=== PATIENT | female | born 1955 | race Two or more races ===

== ENCOUNTER 2018-10-10 07:46 | Inpatient (IN) ==
[~2018-10-10] VITALS: Ht 167.6 cm; Wt 56.7 kg
--- NOTE | 2018-10-10 08:11 | NUR ---
patient BIB came to the er c/o abd pain started last night. Ambulatory with steady gait. On room air, breathing evenly and unlabored. Connected to the monitor and pulse ox. kept comfortable, will continue to monitor accordingly.
--- NOTE | 2018-10-10 08:13 | NUR ---
blood drawned and collected urine and sent to lab.
[2018-10-10] MEDS ORDERED: ONDANSETRON HCL/PF 4 MG/2 ML VIAL ONE (08:18)
[2018-10-10] MEDS ORDERED: MORPHINE SULFATE INJ 2 MG/ML DISP.SYRIN ONE ×2 (08:23→08:37)
[2018-10-10 08:27] LABS: BASOPHILS % (AUTO) 0.2 % (0.0-2.0); EOSINOPHILS % (AUTO) 0.2 % (0.0-6.0); HEMATOCRIT 42 % (33-45); HEMOGLOBIN 14.3 g/dL (11.5-14.8); LYMPHOCYTES # (AUTO) 1.2 /CMM (0.8-4.8); LYMPHOCYTES % (AUTO) 7.1 % (20.0-44.0); MEAN CORPUSCULAR HGB CONC 34 g/dl (31.0-36.0); MEAN CORPUSCULAR VOLUME 98 fL (82-100); MONOCYTES # (AUTO) 0.7 /CMM (0.1-1.30); MONOCYTES % (AUTO) 4.5 % (2.0-12.0); NEUTROPHILS # (AUTO) 14.4 /CMM (1.8-8.9); PLATELET COUNT (AUTO) 194 /CMM (150-450); RED BLOOD CELL COUNT(AUTO) 4.26 MIL/uL (4.0-5.2); WHITE BLOOD COUNT (AUTO) 16.4 K/uL (4.3-11.0)
[2018-10-10] MEDS ORDERED: ONDANSETRON HCL/PF 4 MG/2 ML VIAL IVP ONE (08:30)
[2018-10-10] MEDS ORDERED: MORPHINE SULFATE INJ 2 MG/ML DISP.SYRIN IV ONE ×3 (08:30→12:00)
[2018-10-10] MEDS ORDERED: IV NS 0.9% 1,000 ML BAG IV ONE (08:30)
[2018-10-10 08:31] LABS: APPEARANCE,URINE Clear (CLEAR); BILIRUBIN,URINE SMALL (NEGATIVE); BLOOD, URINE Trace-intact Ery/uL (NEGATIVE); COLOR,URINE Yellow (YELLOW); KETONES,URINE Negative (NEGATIVE); LEUKOCYTE ESTERASE ,URINE Negative (NEGATIVE); NITRITE, URINE Negative (NEGATIVE); PH,URINE 8.5 (5.0-8.0); PROTEIN,URINE 100 mg/dl (NEGATIVE); UGLUCOSE Negative (NEGATIVE)
[2018-10-10 08:32] LABS: CALCIUM, SERUM 8.9 mg/dL (8.5-10.1); POTASSIUM 3.4 mmol/L (3.5-5.1)
[2018-10-10 08:37] LABS: ALBUMIN 3.7 g/dL (3.4-5.0); BILIRUBIN,DIRECT 0.1 mg/dL (0.0-0.2); BILIRUBIN,TOTAL 0.9 mg/dL (0.2-1.0)
[2018-10-10 08:43] LABS: BACTERIA,URINE None seen /HPF (None Seen); RBC,URINE 0-2 /HPF (0-2); SQUAMOUS EPITHELIAL CELL,UR Few /HPF (None Seen); WBC,URINE 0-2 /HPF (0-3)
[2018-10-10] MEDS ORDERED: CT SWABBABLE VALVE TRANS SET 1 EA INFUS.SET MC ONE (09:24)
[2018-10-10] MEDS ORDERED: IV NS 0.9% 250 ML IV ONE (09:24)
[2018-10-10] MEDS ORDERED: IOHEXOL-300 100 ML VIAL IV ONE (09:24)
[2018-10-10] MEDS ORDERED: PIPERACILLIN /TAZOBACTAM 3.375 G in IV D5W 50 ML IV ONE (10:00)
--- NOTE | 2018-10-10 11:31 | NUR ---
DR MA PAGED,LEFT A MESSAGE
--- NOTE | 2018-10-10 11:43 | NUR ---
CALL BACK FROM DR MA
[2018-10-10] MEDS ORDERED: MORPHINE SULFATE INJ 4 MG/ML DISP.SYRIN ONE (12:03)
--- NOTE | 2018-10-10 12:17 | NUR ---
ROOM 316-1
[2018-10-10] MEDS ORDERED: FENTANYL PF 100MCG/2ML AMPUL ONE (12:20)
[2018-10-10] MEDS ORDERED: MIDAZOLAM HCL 2 MG/2ML VIAL ONE (12:20)
[2018-10-10] MEDS ORDERED: ROCURONIUM BROMIDE 50 MG/5 ML ONE (12:21)
[2018-10-10] MEDS ORDERED: LIDOCAINE HCL/PF 1% 30 ML SDV ONE (12:22)
[2018-10-10] MEDS ORDERED: ANESTHESIA TRAY IN PYXIS 1 EA TRAY MC ONE (12:22)
[2018-10-10] MEDS ORDERED: BUPIVACAINE MPF 0.5% W/EPI INJ 30 ML VIAL ONE (12:22)
--- NOTE | 2018-10-10 12:24 | NUR ---
REPORT GIVEN TO LORI YOUNG FOR STANISLAW
[2018-10-10] MEDS ORDERED: ALBUTEROL FS 2.5 MG/3 ML VIAL.NEB ONE (12:47)
[2018-10-10] MEDS ORDERED: IPRATROPIUM NEB FS 0.5 MG/2.5 ML AMPUL.NEB ONE (12:47)
--- NOTE | 2018-10-10 12:47 | NUR ---
OR STAFF HERE TO TAKE HER DIRECTLY TO OPERATING ROOM
[2018-10-10] MEDS ORDERED: MAGNESIUM HYDROXIDE 30 ML UDC PO PRN (13:30)
[2018-10-10] MEDS ORDERED: ACETAMINOPHEN 325 MG TABLET PO PRN (13:30)
[2018-10-10] MEDS ORDERED: Z GUARD REMEDY 2 OZ OINT TP PRN (13:30)
[2018-10-10] MEDS ORDERED: ZOLPIDEM TARTRATE 5 MG TABLET PO PRN (13:30)
[2018-10-10] MEDS ORDERED: ONDANSETRON HCL/PF 4 MG/2 ML VIAL IVP PRN ×2 (13:30→16:30)
[2018-10-10] MEDS ORDERED: MAG HYDROX/AL HYDROX/SIMETH 30 ML UDC PO PRN (13:30)
[2018-10-10] MEDS ORDERED: BACITRACIN/POLYMYXIN B 15 GM TUBE TP ONE (14:18)
[2018-10-10] MEDS ORDERED: BACITRACIN ZINC OINT PACKET 1 EA PACKET TP ONE (14:35)
[2018-10-10 15:30] VITALS: BP 102/52
--- NOTE | 2018-10-10 15:30 | NUR ---
MS RN NOTES ADMITTED FROM ER WENT TO OR DIRECTLY, REPORT GIVEN BY LUIS YOUNG (ER) . PATIENT CAME FROM OR, REPORT GIVEN BY CHARLENE YOUNG. ALERT ORIENTED X 4, WITH STABLE VITAL SIGNS. NO ACUTE DISTRESS NOTED, BREATHING UNLABORED. IV ACCESS PATENT AND INTACT. DRESSING ON ABDOMEN CLEAN, DRY AND INTACT. DENIED PAIN AT THIS TIME. NEEDS ATTENDED AND ANTICIPATED. SAFETY MEASURES IN PLACE. CALL LIGHT WITHIN REACH. WILL CONTINUE TO MONITOR ACCORDINGLY.
[2018-10-10 16:00] VITALS: BP 94/61
[2018-10-10] MEDS ORDERED: IBUPROFEN 400 MG TABLET PO PRN (16:30)
[2018-10-10] MEDS ORDERED: HYDROMORPHONE 1 MG/1 ML DISP.SYRIN IV PRN (16:30)
[2018-10-10] MEDS: IV LR 1000 ML 1,000 ML IV PRN (17:12)
[2018-10-10] MEDS: GABAPENTIN 300 MG CAPSULE PO SCH (17:12)
[2018-10-10] MEDS: PIPERACILLIN /TAZOBACTAM 3.375 G in IV D5W 50 ML IV SCH (17:13)
--- NOTE | 2018-10-10 18:16 | NUR ---
MS RN NOTES RECEIVED NEW ORDERS FROM DR MINA PIMENTEL FOR Mefoxin (Cefoxitin 1 G) 1G in IV D5w 50 ml (IV D5w 50 ML) 50 ml @ 100 MLS/HR for 30 MIN IV Q8HR TO START TONIGHT AT 2100. NOTED AND CARRIED OUT.
--- NOTE | 2018-10-10 18:30 | NUR ---
MS RN NOTES RECEIVED NEW ORDERS FROM DR MINA PIMENTEL TO DISCONTINUE Mefoxin (Cefoxitin 1 G) 1G in IV D5w 50 ml (IV D5w 50 ML) 50 ml @ 100 MLS/HR for 30 MIN IV Q8HR . NOTED AND CARRIED OUT.
--- NOTE | 2018-10-10 18:53 | NUR ---
MS RN NOTES PATIENT IN BED ALERT ORIENTED X 4, WITH STABLE VITAL SIGNS .NO ACUTE DISTRESS NOTED, BREATHING UNLABORED, NO SOB NOTED. IV ACCESS PATENT AND INTACT, NO REDNESS NO SWELLING NOTED. DUE MEDICATIONS GIVEN, NO ASE NOTED. ABDOMINAL DRESSING CLEAN DRY AND INTACT. NEEDS ATTENDED AND ANTICIPATED. SAFETY MEASURES IN PLACE. CALL LIGHT WITHIN REACH. WILL ENDORSE TO NIGHT NURSE FOR CONTINUITY OF CARE.
--- NOTE | 2018-10-10 19:30 | NUR ---
RN MS OPENING NOTES RECEIVED PATIENT IN BED AWAKE, ALERT AND ORIENTED X4, VERBALLY RESPONSIVE, ABLE TO MAKE NEEDS KNOWN. BREATHING EVEN AND UNLABORED. NO SOB NOTED. ON 2LPM OXYGEN VIA NC. CURRENTLY WITH NO COMPLAINTS OF PAIN OR DISCOMFORT. NO FACIAL GRIMACING. IV ON LEFT AC INTACT AND PATENT WITH IVF INFUSING. SKIN DRY AND WARM TO TOUCH. AFEBRILE. DRESSING ON THE ABDOMEN DRY AND INTACT. ALL OTHER NEEDS MET. SAFETY MEASURES IN PLACE. CALL LIGHT WITHIN REACH. WILL CONTINUE TO MONITOR.
[2018-10-10 20:00] VITALS: BP 107/63
[2018-10-10] MEDS ORDERED: CEFOXITIN 1 G in IV D5W 50 ML IV SCH (21:00)
[2018-10-10] MEDS: HYDROCODONE/APAP 5/325MG 1 EACH TABLET PO PRN (21:38)
[2018-10-11] MEDS: PIPERACILLIN /TAZOBACTAM 3.375 G in IV D5W 50 ML IV SCH ×2 (00:36→05:49)
[2018-10-11] MEDS: GABAPENTIN 300 MG CAPSULE PO SCH ×4 (00:37→23:53)
[2018-10-11] MEDS: IV LR 1000 ML 1,000 ML IV PRN ×2 (03:37→18:56)
--- NOTE | 2018-10-11 06:28 | NUR ---
RN MS CLOSING NOTES PATIENT RESTING IN BED. NO ACUTE CHANGES THROUGHOUT SHIFT. ALL DUE MEDS GIVEN AND TOLERATED WELL. BREATHING EVEN AND UNLABORED. NO SOB NOTED. CURRENTLY WITH NO COMPLAINTS OF PAIN OR DISCOMFORT. NO FACIAL GRIMACING. IV ON LEFT AC INTACT AND PATENT WITH IVF INFUSING. DRESSING ON THE ABDOMEN DRY AND INTACT. NO SIGNS OF DRAINAGE OR REDNESS IN SURROUNDING AREA. ALL OTHER NEEDS MET. SAFETY MEASURES IN PLACE. CALL LIGHT WITHIN REACH. WILL ENDORSE TO ONCOMING NURSE FOR STANISLAW.
[2018-10-11 06:33] LABS: BASOPHILS % (AUTO) 0.1 % (0.0-2.0); EOSINOPHILS % (AUTO) 0.1 % (0.0-6.0); HEMATOCRIT 34 % (33-45); HEMOGLOBIN 11.8 g/dL (11.5-14.8); LYMPHOCYTES # (AUTO) 0.8 /CMM (0.8-4.8); LYMPHOCYTES % (AUTO) 7.1 % (20.0-44.0); MEAN CORPUSCULAR HGB CONC 34 g/dl (31.0-36.0); MEAN CORPUSCULAR VOLUME 97 fL (82-100); MONOCYTES # (AUTO) 0.7 /CMM (0.1-1.30); MONOCYTES % (AUTO) 6.1 % (2.0-12.0); NEUTROPHILS # (AUTO) 9.7 /CMM (1.8-8.9); NEUTROPHILS % (AUTO) 86.6 % (43.0-81.0); PLATELET COUNT (AUTO) 151 /CMM (150-450); RED BLOOD CELL COUNT(AUTO) 3.55 MIL/uL (4.0-5.2); WHITE BLOOD COUNT (AUTO) 11.2 K/uL (4.3-11.0)
[2018-10-11 06:49] LABS: CALCIUM, SERUM 8.3 mg/dL (8.5-10.1); CREATININE 0.9 mg/dL (0.6-1.3); MAGNESIUM 1.9 mg/dL (1.8-2.4); PHOSPHORUS 2.8 mg/dL (2.5-4.9); POTASSIUM 4.1 mmol/L (3.5-5.1)
[2018-10-11 08:00] VITALS: BP 110/64
[2018-10-11 08:37] VITALS: BP 110/64
[2018-10-11] MEDS: HYDROCODONE/APAP 5/325MG 1 EACH TABLET PO PRN ×2 (11:42→23:09)
--- NOTE | 2018-10-11 12:00 | NUR ---
patient tolerated full liquid well. No N/V , no pain
[2018-10-11] MEDS: PIPERACILLIN /TAZOBACTAM 3.375 G in IV D5W 100 ML IV SCH ×2 (13:25→21:00)
[2018-10-11 16:00] VITALS: BP 107/64
--- NOTE | 2018-10-11 18:51 | NUR ---
PATIENT A/OX4 , IN BED . BREATHING UNLABORED AND EVEN ON ROOM AIR. PATIENT STARTED ON REGULAR DIET AND TOLERATED WELL. NO COMPLAINS OF PAIN AT THIS TIME. ALL NEEDS ATTENDED TO.WILL ENDORSE TO NEXT SHIFT
--- NOTE | 2018-10-11 19:06 | NUR ---
Patient lives locally with family. She is ambulatory and independent with adl's. Denies needs of DME, no hx of homehealth care. Has good family support. She plan to return home once discharge. Addendum: 10/11/18 at 1906 by NAHEED SILVA RN Amended: Links added.
--- NOTE | 2018-10-11 19:13 | NUR ---
MS HANNAH OPENING NOTES: RECEIVED PT ON ROOM AIR AND IS TOLERATING WELL. NO SOB NOTED. NO S/S OF DISTRESS. PT JUST SAYING WHEN SHE MOVES, SHE GETS PAIN. IV BEING INFUSED WITH IV LR AT 100ML/HR. BED KEPT IN LOW, LOCKED POSITION, AND SIDE RAILS X 2UP. WILL CONTINUE TO MONITOR PT. Addendum: 10/11/18 at 2031 by BRYANT BECERRIL RN ABDOMEN DRESSING NOTED CLEAN AND DRY WITH TEGADERM.
[2018-10-11 20:00] VITALS: BP 113/63
--- NOTE | 2018-10-11 23:10 | NUR ---
MS RN NOTES: PT COMPLAINING OF 5/10 ABDOMEN ACHY PAIN. PT WAS ADMINISTERED NORCO 5 PO. WILL CONTINUE TO MONITOR.
[2018-10-12] MEDS: PIPERACILLIN /TAZOBACTAM 3.375 G in IV D5W 100 ML IV SCH (05:06)
--- NOTE | 2018-10-12 06:30 | NUR ---
MS RN CLOSING NOTES: ALL NEEDS WERE ATTENDED AND ANTICIPATED FOR. NO SOB NOTED. NO S/S OF DISTRESS. PT ASLEEP AT THIS TIME RESTING COMFORTABLY. DRESSING ON MIDLINE ABDOMEN REMAINS CLEAN AND DRY. PT HAS IV ON L AC #20G AND IS BEING INFUSED WITH ZOSYN AT 25ML/HR. BED KEPT IN LOW, LOCKED POSITION, AND SIDE RAILS X 2UP. WILL ENDORSE TO AM NURSE FOR STANISLAW.
[2018-10-12 06:53] LABS: BASOPHILS % (AUTO) 0.2 % (0.0-2.0); EOSINOPHILS % (AUTO) 1.6 % (0.0-6.0); HEMATOCRIT 30 % (33-45); HEMOGLOBIN 10.3 g/dL (11.5-14.8); LYMPHOCYTES # (AUTO) 0.8 /CMM (0.8-4.8); LYMPHOCYTES % (AUTO) 9.6 % (20.0-44.0); MEAN CORPUSCULAR HGB CONC 35 g/dl (31.0-36.0); MEAN CORPUSCULAR VOLUME 97 fL (82-100); MONOCYTES # (AUTO) 0.6 /CMM (0.1-1.30); MONOCYTES % (AUTO) 7.5 % (2.0-12.0); NEUTROPHILS % (AUTO) 81.1 % (43.0-81.0); PLATELET COUNT (AUTO) 143 /CMM (150-450); RED BLOOD CELL COUNT(AUTO) 3.09 MIL/uL (4.0-5.2); WHITE BLOOD COUNT (AUTO) 8.6 K/uL (4.3-11.0)
[2018-10-12 06:57] LABS: CALCIUM, SERUM 7.9 mg/dL (8.5-10.1); CREATININE 0.6 mg/dL (0.6-1.3); POTASSIUM 3.4 mmol/L (3.5-5.1)
--- NOTE | 2018-10-12 07:25 | NUR ---
MS/RN OPENING NOTE THE PATIENT IS RECEIVED IN BED. ALERT AND ORIENTED X4. IN ROOM AIR AND DENIES SOB. RESPIRATION REGULAR AND UNLABORED. DENIES PAIN. MID ABDOMINAL DRESSING INTACT AND NO STRIKE THRU NOTED. LAC G 20 PATENT AND LR INFUSING AT 100 ML/HR. NO S/S INFILTRATION NOTED. BED LOW AND LOCKED. SIDE RAILS UP X3. CALL LIGHT WITHIN REACH. WILL CONTINUE TO MONITOR.
[2018-10-12 08:03] VITALS: BP_SYST 117; BP_SYST 134; BP_DIAS 60; BP_DIAS 77
[2018-10-12] MEDS: GABAPENTIN 300 MG CAPSULE PO SCH (08:46)
[2018-10-12] MEDS: HYDROCODONE/APAP 5/325MG 1 EACH TABLET PO PRN (11:50)
[2018-10-12] MEDS ORDERED: POTASSIUM CHLORIDE 20 MEQ TAB.PRT.SR PO SCH (12:00)
--- NOTE | 2018-10-12 12:15 | NUR ---
MS/RN CLOSING NOTE THE PATIENT ALERT AND ORIENTED X4. IN ROOM AIR AND SATURATION IS AT 97%. DENIES SOB. RESPIRATION REGULAR AND UNLABORED. DENIES PAIN. THE PATIENT IN NO APPARENT DISTRESS. GAVE THE PRESCRIPTION FORM, DR MA INFORMATION AND DISCHARGE EDUCATION. THE PATIENT VERBALIZED UNDERSTANDING. THE PATIENT GOT PICKED UP BY [facility]. LEFT THE HOSPITAL IN STABLE CONDITION. Addendum: 10/12/18 at 1345 by LISA ZAVALA RN THE PATIENT REFUSED PICTURES TO BE TAKEN. EXPLAINED RISKS AND BENEFITS BUT THE PATIENT STILL REFUSED.
== END 2018-10-12 12:19 | disposition home or self-care (01) | DRG 340 ==
LOC: ER 07:48 → MED 12:20
PROVIDERS: ADMIT Family Medicine; ATTEND Family Medicine
DX: K35.32 Acute appendicitis with perforation, localized peritonitis, and gangrene, without abscess (principal); E87.6 Hypokalemia; R73.9 Hyperglycemia, unspecified; F17.210 Nicotine dependence, cigarettes, uncomplicated; D72.829 Elevated white blood cell count, unspecified
CPT/HCPCS: 36415; 71045-TC; 80048-TC; 80061-TC; 80076-TC; 81000-TC; 83605-TC; 83690-TC; 83735-TC; 83880; 84100-TC; 85025-TC; 85730-TC; 86850-TC; 87040-TC; 87070-TC; 87075-TC; 87081-TC; 87086-TC; 87186-TC; 88304-TC; G0378; J0330; J0694; J1100; J2250; J2270; J2405; J2543; J2704; J2710; J2765; J3010; J3490; J7030; J7050; J7060; J7120; Q9967